=== PATIENT | female | born 1930 | race Hispanic/Latino ===

== ENCOUNTER → 2018-11-05 | Outpatient (CLI) | payer MEDICARE | END | disposition home or self-care (01) | LOC: RAH 09:24 | PROVIDERS: ATTEND Internal Medicine Cardiovascular Disease | DX: I11.9 Hypertensive heart disease without heart failure (principal); E65 Localized adiposity; Z95.1 Presence of aortocoronary bypass graft; Z95.0 Presence of cardiac pacemaker | CPT/HCPCS: 93306 ==

== ENCOUNTER 2019-10-22 09:52 | Observation (INO) | payer MEDICARE ==
[2019-10-21 10:47] LABS: BASOPHILS % (AUTO) 0.8 % (0.0-5.0); EOSINOPHILS % (AUTO) 1.1 % (0.0-8.0); HEMATOCRIT 40.3 % (36-48); LYMPHOCYTES % (AUTO) 22.8 % (21.0-51.0); MEAN CORPUSCULAR HEMOGLOBIN 30.4 pg (27.0-33.0); MEAN CORPUSCULAR HGB CONC 31.8 g/dL (32.0-36.0); MEAN CORPUSCULAR VOLUME 95.7 fL (79-99); MONOCYTES % (AUTO) 8.1 % (3.0-13.0); NEUTROPHILS % (AUTO) 66.9 % (40.0-77.0); PLATELET COUNT (AUTO) 157 K/uL (130-400); RED BLOOD CELL COUNT(AUTO) 4.21 MIL/uL (4.00-5.50); RED CELL DISTRIBUTION WIDTH 13.5 % (11.0-15.5); WHITE BLOOD COUNT (AUTO) 6.3 K/uL (4.8-10.8)
[2019-10-21 10:55] LABS: CREATININE 1.1 mg/dL (0.5-1.5); POTASSIUM 4.5 mmol/L (3.5-5.1)
[2019-10-21 11:00] VITALS: BP 147/60
[2019-10-21 11:16] LABS: INR 0.98 (0.85-1.15); PARTIAL THROMBOPLASTIN TIME 25.6 SEC (26.3-35.5); PROTHROMBIN TIME 10.3 SEC (9.6-11.6)
[2019-10-22] VITALS (8 sets, daily range): BP systolic 115–145; BP diastolic 47–66
[~2019-10-22] VITALS: Ht 154.9 cm; Wt 56.2 kg
[~2019-10-22 09:52] MED LIST: CLOP75TA32 PO; HUM100IN SQ; METO-391 PO; ROSU10TA28 PO; SACU1TAB7 PO; SODIUM CHLORIDE 0.9% 1000ML 1,000 ML IV SCH
[2019-10-22] MEDS ORDERED: BUPIVACAINE/PF 0.25% 30ML VIAL IJ ONE (17:52)
[2019-10-22] MEDS ORDERED: CEFAZOLIN SODIUM 1 GM VIAL ONE (17:52)
[2019-10-22] MEDS ORDERED: MIDAZOLAM HCL 1 MG/ML 2ML VIAL ONE ×2 (17:53→18:51)
[2019-10-22] MEDS ORDERED: LIDOCAINE HCL 1% MDV 50ML VIAL ONE (17:53)
[2019-10-22] MEDS ORDERED: MEPERIDINE-PF 25 MG/ML SYG ONE (17:53)
[2019-10-22] MEDS ORDERED: MEPERIDINE-PF 50 MG/ML SYG ONE (18:51)
[2019-10-22] MEDS ORDERED: DEXTROSE 50%-WATER 50 ML DISP.SYRIN IV PRN (19:45)
[2019-10-22] MEDS ORDERED: GLUCAGON 1MG KIT 1 MG ML IM PRN (19:45)
[2019-10-22] MEDS ORDERED: ACETAMINOPHEN-CODEINE 300/30MG TAB PO PRN ×2 (19:45)
[2019-10-22] MEDS: PHARMACY COMMUNICATION MISC SCH (20:00)
[2019-10-22] MEDS ORDERED: ACETAMINOPHEN 325 MG TAB PO PRN (20:15)
[2019-10-22] MEDS: SACUBITRIL PO SCH (21:00)
[2019-10-22] MEDS: VALSARTAN PO SCH (21:00)
--- NOTE | 2019-10-22 21:12 | NUR ---
Benchmark paged, will see patient in the am
[2019-10-22] MEDS: INSULIN HUMULIN R 100 UNIT/ML 3ML SQ SCH (22:18)
[2019-10-23 04:00] VITALS: BP 139/59
[2019-10-23] MEDS: PHARMACY COMMUNICATION MISC SCH (04:00)
[2019-10-23] MEDS ORDERED: CEFAZOLIN SODIUM 1 GM VIAL IVP SCH (06:00)
[2019-10-23] MEDS: INSULIN HUMULIN R 100 UNIT/ML 3ML SQ SCH ×2 (06:45→12:49)
[2019-10-23 08:00] VITALS: BP 127/54
[2019-10-23] MEDS ORDERED: Rosuvastatin Calcium 10 MG PO SCH (09:00)
[2019-10-23] MEDS ORDERED: CLOPIDOGREL BISULFATE 75 MG TAB PO SCH (09:00)
[2019-10-23] MEDS: VALSARTAN PO SCH (09:00)
[2019-10-23] MEDS ORDERED: METOPROLOL SUCCINATE 50 MG TAB.SR.24H PO SCH (09:00)
[2019-10-23] MEDS ORDERED: DOXYCYCLINE HYCLATE 100 MG TABLET PO SCH (09:00)
[2019-10-23] MEDS: SACUBITRIL PO SCH (09:00)
[2019-10-23 11:57] VITALS: BP 139/58
== END 2019-10-23 15:10 | disposition home or self-care (01) ==
LOC: DAH 09:52 → 2AH 09:53
PROVIDERS: ADMIT Internal Medicine Critical Care Medicine; ATTEND Internal Medicine Critical Care Medicine
DX: I25.5 Ischemic cardiomyopathy (principal); I25.10 Atherosclerotic heart disease of native coronary artery without angina pectoris; I50.9 Heart failure, unspecified; I21.09 ST elevation (STEMI) myocardial infarction involving other coronary artery of anterior wall; I21.19 ST elevation (STEMI) myocardial infarction involving other coronary artery of inferior wall; I11.0 Hypertensive heart disease with heart failure; I49.5 Sick sinus syndrome; E78.5 Hyperlipidemia, unspecified; E11.9 Type 2 diabetes mellitus without complications; Z79.4 Long term (current) use of insulin; Z95.1 Presence of aortocoronary bypass graft; Z79.02 Long term (current) use of antithrombotics/antiplatelets
CPT/HCPCS: 33264; 36415; 80048; 82948 ×5; 85025; 85610; 85730; 93005; 96372 ×2; 96374; A4215; A4216; A4221; A4222; A4223 ×3; A4606; A4663; C1882; G0378 ×16; J0690 ×2; J1815 ×2; J2175 ×2; J2250 ×2; J3490 ×2; 99156; 99157